=== PATIENT | male | born 1955 | race American Indian/Alaskan Native ===

== ENCOUNTER 2018-01-04 17:52 | Emergency (ER) | payer MEDICAID, OTHER ==
[2018-01-04] MEDS: Sodium Chloride 0.9% 10 ML Syringe FLUSH PRN ×2 (18:03→18:20)
[2018-01-04 18:04] VITALS: BP 169/90
[2018-01-04] MEDS ORDERED: MVI, Adult with Vitamin K 10 ML, Thiamine 100 MG, Folic Acid 1 MG in Lactated Ringers 1... IV ONE ×4 (18:06)
[2018-01-04 18:29] LABS: ANION GAP 18.5; CHLORIDE,CL 101 mmol/L (101-111); SODIUM,NA 139 mmol/L (135-145)
--- NOTE | 2018-01-04 18:46 | EDM.PDOC ---
Scribed by Angelia Wang 01/04/18 [id number] for Bienvenido Gonzalez MD ED HPI GENERAL MEDICAL PROBLEM - General Chief Complaint: Drug or Alcohol Abuse Stated Complaint: ETOH. IN BY [facility] Time Seen by Provider: 01/04/18 17:45 Source of Information: Reports: Patient, EMS, EMS Notes Reviewed, RN, RN Notes Reviewed History Limitations: Reports: No Limitations - History of Present Illness INITIAL COMMENTS - FREE TEXT/NARRATIVE: Patient arrives to ER by [facility]. His called stating she did not think he was breathing. EMS reports that when they arrived on scene the patient was alert and talking. Patient is heavily intoxicated. Patient complained of chest pain and was known by EMS to have coronary artery disease status post CABG. Patient had taken aspirin earlier today. EMS gave nitroglycerin 0.2mg one tablet sublingual, which resolved the patient's chest pain. Patient states that he feels very intoxicated. Denies any pain at this time. Patient is unable to provide any further history. Onset: Today Severity: Moderate Improves with: Reports: None Worsens with: Reports: None Associated Symptoms: Reports: No Other Symptoms - Related Data Allergies Allergy/AdvReac Type Severity Reaction Status Date / Time mathew Allergy Hives Verified 01/04/18 18:06 Home Meds: Home Meds Metoprolol Succinate [Toprol XL] 25 mg PO DAILY 10/17/15 [History] atorvaSTATin Calcium [Atorvastatin Calcium] 40 mg PO DAILY 10/17/15 [History] Aspirin [Halfprin] 81 mg PO DAILY 01/04/18 [History] Ferrous Gluconate 324 mg PO BID 01/04/18 [History] Levothyroxine Sodium [Levo-T] 0.05 mg PO DAILY 01/04/18 [History] Montelukast [Singulair] 10 mg PO DAILY 01/04/18 [History] metFORMIN [Glucophage XR] 500 mg PO DAILY 01/04/18 [History] Past Medical History - Past Health History Medical/Surgical History: Denies Medical/Surgical History HEENT History: Reports: Cataract Cardiovascular History: Reports: CAD Respiratory History: Reports: COPD Musculoskeletal History: Reports: None Psychiatric History: Reports: Addiction (alcohol) - Past Surgical History Cardiovascular Surgical History: Reports: Coronary Artery Bypass Musculoskeletal Surgical History: Reports: Other (See Below) Social & Family History - Family History Family Medical History: Noncontributory - Tobacco Use Smoking Status *Q: Former Smoker Tobacco Use Within Last Twelve Months: Cigarettes - Alcohol Use Alcohol Use History: Yes Days Per Week of Alcohol Use: 7 ("heavy drinker") Alcohol Use Frequency: Daily - Recreational Drug Use Recreational Drug Use: No - Living Situation & Occupation Living situation: Reports: , with Family 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 ED EXAM, GENERAL - Physical Exam Exam: See Below Exam Limited By: Intoxication General Appearance: Alert, WD/WN, No Apparent Distress Eye Exam: Bilateral Eye: Normal Inspection Ears: Hearing Grossly Normal Nose: Normal Inspection, Normal Mucosa, No Blood Throat/Mouth: Normal Lips, Normal Oropharynx, Normal Voice, No Airway Compromise , Other (dry oral membranes) Head: Atraumatic, Normocephalic Neck: Normal Inspection, Supple, Non-Tender, Full Range of Motion Respiratory/Chest: No Respiratory Distress, Lungs Clear, No Accessory Muscle Use , Chest Non-Tender, Decreased Breath Sounds Cardiovascular: Regular Rate, Rhythm, No Edema, Tachycardia GI/Abdominal: Normal Bowel Sounds, Soft, Non-Tender, No Distention. No: Guarding, Rigid, Rebound (Male) Exam: Deferred Rectal (Males) Exam: Deferred Back Exam: Normal Inspection Extremities: Normal Inspection, Normal Range of Motion, Non-Tender, Normal Capillary Refill, No Pedal Edema Neurological: Alert, No Motor/Sensory Deficits, Other (intoxicated) Psychiatric: Normal Mood Skin Exam: Warm, Dry, Intact, Normal Color, No Rash EKG INTERPRETATION EKG Date: 01/04/18 Time: 17:51 Rhythm: Other (sinus tachycardia) Rate (Beats/Min): 131 [place]: Normal P-Wave: Present QRS: Other (inferior Q waves, old (present 10/17/15 EKG).) ST-T: Other (Chronic T wave abnormalities (T wave inversion present 10/17/15). T wave depression V1 and V2.) QT: Normal Course - Vital Signs Last Recorded V/S: Last Vital Signs Temp 36.9 C 01/04/18 18:01 Pulse 118 H 01/04/18 18:01 Resp 18 01/04/18 18:01 BP 169/90 H 01/04/18 18:01 Pulse Ox 97 01/04/18 18:01 - Orders/Labs/Meds Orders: Active Orders 24 hr Category Date Time Status Blood Glucose Check, Bedside [] ONETIME Care 01/04/18 17:53 Active EKG 12 Lead [EKG Documentation Completion] [RC] STAT Care 01/04/18 17:53 Active Peripheral IV Care [RC] . DIRECTED Care 01/04/18 17:53 Active Chest 1V Frontal [CR] Stat Exams 01/04/18 17:53 Taken UA W/MICROSCOPIC [URIN] Stat Lab 01/04/18 17:53 Ordered MVI, Adult with Vitamin K [Infuvite Adult] 10 ml Med 01/04/18 18:06 Active Thiamine [Vitamin B-1] 100 mg Folic Acid 1 mg Lactated Ringers [Ringers, Lactated] 1,000 ml IV .BOLUS Sodium Chloride 0.9% [Saline Flush] Med 01/04/18 17:53 Active 10 ml FLUSH ASDIRECTED PRN Peripheral IV Insertion Adult [OM.PC] Stat Oth 01/04/18 17:53 Ordered Medication Orders Multivitamins/Minerals 10 ml/Thiamine HCl 100 mg/ Folic Acid 1 mg/ Lactated Ringer's 1,011.2 mls @ 999 mls/hr IV .BOLUS ONE Stop: 01/04/18 19:06 Last Admin: 01/04/18 18:20 Dose: 999 mls/hr Sodium Chloride (Saline Flush) 10 ml FLUSH ASDIRECTED PRN PRN Reason: Keep Vein Open Last Admin: 01/04/18 18:20 Dose: 10 ml Admin: 01/04/18 18:03 Dose: 10 ml Labs: Laboratory Tests 01/04/18 01/04/18 01/04/18 Range/Units 18:00 18:00 18:00 WBC 7.7 (5.0-10.0) 10^3/uL RBC 4.65 (4.6-6.2) 10^6/uL Hgb 13.6 L D (14.0-18.0) g/dL Hct 41.1 (40.0-54.0) % MCV 88.4 (80-100) fL MCH 29.2 (27.0-34.0) pg MCHC 33.1 (33.0-35.0) g/dL Plt Count 304 D (150-450) 10^3/uL Neut % (Auto) 62.2 (42.2-75.2) % Lymph % (Auto) 31.6 (20.5-50.1) % [place] % (Auto) 5.4 (2-8) % Eos % (Auto) 0.4 L (1.0-3.0) % Baso % (Auto) 0.4 (0.0-1.0) % PT 10.2 (9.0-12.0) SEC INR 1.0 (0.9-1.2) APTT (22.0-34.0) SEC Sodium 139 (135-145) mmol/L Potassium 3.5 L (3.6-5.0) mmol/L Chloride 101 (101-111) mmol/L Carbon Dioxide 23.0 (21.0-31.0) mmol/L Anion Gap 18.5 BUN 8 (7-18) mg/dL Creatinine 1.0 (0.6-1.3) mg/dL Est Cr Clr Drug Dosing 79.08 mL/min Estimated GFR (MDRD) > 60 BUN/Creatinine Ratio 8.00 Glucose 135 H (74-105) mg/dL POC Glucose (70-105) mg/dl Calcium 7.5 L (8.4-10.2) mg/dl Total Bilirubin 0.6 (0.2-1.0) mg/dL AST 63 H (10-42) IU/L ALT 54 (10-60) IU/L Alkaline Phosphatase 108 (42-121) IU/L Ammonia (11-35) umol/L Troponin I < 0.02 (0.00-0.02) ng/ml B-Natriuretic Peptide 9 (0-100) pg/ml Total Protein 7.1 (6.7-8.2) g/dl Albumin 3.6 (3.2-5.5) g/dl Globulin 3.5 Albumin/Globulin Ratio 1.03 Amylase 19 L (28-100) U/L Lipase 22 (22-51) U/L Ethyl Alcohol 380 mg/dL 01/04/18 01/04/18 01/04/18 Range/Units 18:00 18:00 18:19 WBC (5.0-10.0) 10^3/uL RBC (4.6-6.2) 10^6/uL Hgb (14.0-18.0) g/dL Hct (40.0-54.0) % MCV (80-100) fL MCH (27.0-34.0) pg MCHC (33.0-35.0) g/dL Plt Count (150-450) 10^3/uL Neut % (Auto) (42.2-75.2) % Lymph % (Auto) (20.5-50.1) % [place] % (Auto) (2-8) % Eos % (Auto) (1.0-3.0) % Baso % (Auto) (0.0-1.0) % PT (9.0-12.0) SEC INR (0.9-1.2) APTT 26.1 (22.0-34.0) SEC Sodium (135-145) mmol/L Potassium (3.6-5.0) mmol/L Chloride (101-111) mmol/L Carbon Dioxide (21.0-31.0) mmol/L Anion Gap BUN (7-18) mg/dL Creatinine (0.6-1.3) mg/dL Est Cr Clr Drug Dosing mL/min Estimated GFR (MDRD) BUN/Creatinine Ratio Glucose (74-105) mg/dL POC Glucose 112 H (70-105) mg/dl Calcium (8.4-10.2) mg/dl Total Bilirubin (0.2-1.0) mg/dL AST (10-42) IU/L ALT (10-60) IU/L Alkaline Phosphatase (42-121) IU/L Ammonia 19 (11-35) umol/L Troponin I (0.00-0.02) ng/ml B-Natriuretic Peptide (0-100) pg/ml Total Protein (6.7-8.2) g/dl Albumin (3.2-5.5) g/dl Globulin Albumin/Globulin Ratio Amylase (28-100) U/L Lipase (22-51) U/L Ethyl Alcohol mg/dL Meds: Medications Generic Name Dose Route Start Last Admin Trade Name Freq PRN Reason Stop Dose Admin Multivitamins/Minerals 10 ml/ 1,011.2 mls @ 999 mls/hr 01/04/18 18:06 18:20 Thiamine HCl 100 mg/ Folic IV 01/04/18 19:06 999 mls/hr Acid 1 mg/ Lactated Ringer's .BOLUS ONE Administration Sodium Chloride 10 ml 01/04/18 17:53 01/04/18 18:20 Saline Flush FLUSH 10 ml ASDIRECTED PRN Administration Keep Vein Open - Radiology Interpretation Free Text/Narrative:: CXR: no acute process, see Rad. report. Departure - Departure Time of Disposition: 18:44 Disposition: Home, Self-Care 01 Condition: Fair Clinical Impression: Non-cardiac chest pain Acute alcohol intoxication Qualifiers: Complication of substance-induced condition: uncomplicated Qualified Code(s): F10.929 - Alcohol use, unspecified with intoxication, unspecified - Discharge Information *PRESCRIPTION DRUG MONITORING PROGRAM REVIEWED*: Not Applicable *COPY OF PRESCRIPTION DRUG MONITORING REPORT IN PATIENT BRAIN: Not Applicable Instructions: Alcohol Intoxication, [id number], Nonspecific Chest Pain, Easy- to-Read Forms: ED Department Discharge Additional Instructions: Do not drink any more alcohol tonight. Follow up in clinic this week for recheck. - My Orders Last 24 Hours: My Active Orders 01/04/18 17:53 Blood Glucose Check, Bedside [RC] ONETIME EKG 12 Lead [EKG Documentation Completion] [RC] STAT Peripheral IV Care [RC] . DIRECTED Chest 1V Frontal [CR] Stat UA W/MICROSCOPIC [URIN] Stat Sodium Chloride 0.9% [Saline Flush] 10 ml FLUSH ASDIRECTED PRN Peripheral IV Insertion Adult [OM.PC] Stat 01/04/18 18:06 MVI, Adult with Vitamin K [Infuvite Adult] 10 ml Thiamine [Vitamin B-1] 100 mg Folic Acid 1 mg Lactated Ringers [Ringers, Lactated] 1,000 ml IV .BOLUS - Assessment/Plan Last 24 Hours: My Active Orders 01/04/18 17:53 Blood Glucose Check, Bedside [RC] ONETIME EKG 12 Lead [EKG Documentation Completion] [RC] STAT Peripheral IV Care [RC] . DIRECTED Chest 1V Frontal [CR] Stat UA W/MICROSCOPIC [URIN] Stat Sodium Chloride 0.9% [Saline Flush] 10 ml FLUSH ASDIRECTED PRN Peripheral IV Insertion Adult [OM.PC] Stat 01/04/18 18:06 MVI, Adult with Vitamin K [Infuvite Adult] 10 ml Thiamine [Vitamin B-1] 100 mg Folic Acid 1 mg Lactated Ringers [Ringers, Lactated] 1,000 ml IV .BOLUS I have read and agree with the documentation that has been completed regarding this visit. By signing this record, I attest that the documentation was completed in my physical presence and is an accurate record of the encounter.
== END 2018-01-04 18:53 | disposition home or self-care (01) ==
LOC: DL.ED 17:52
DX: F10.129 Alcohol abuse with intoxication, unspecified (principal); R07.89 Other chest pain; I25.10 Atherosclerotic heart disease of native coronary artery without angina pectoris; Y90.8 Blood alcohol level of 240 mg/100 ml or more; Z79.82 Long term (current) use of aspirin; Z79.84 Long term (current) use of oral hypoglycemic drugs; Z79.899 Other long term (current) drug therapy; Z87.891 Personal history of nicotine dependence; Z95.1 Presence of aortocoronary bypass graft; Z91.018 Allergy to other foods
CPT/HCPCS: 36415; 71045; 80053; 82140; 82150; 82962; 83690; 83880; 84484; 85025; 85610; 85730; 93005; 96365; 99285; G0480; J3411; J7050; J7120; J3490

== ENCOUNTER 2019-11-20 17:35 | Observation (INO) | payer MEDICAID, OTHER ==
[2019-11-20] MEDS ORDERED: LORazepam 2 MG/ML SDV IVPUSH ONE (17:48)
[2019-11-20] MEDS ORDERED: MVI, Adult with Vitamin K 10 ML, Folic Acid 1 MG, Thiamine 100 MG in Lactated Ringers 1... IV ONE ×4 (17:48)
[2019-11-20] MEDS ORDERED: Folic Acid 1 MG Tab PO ONE (17:49)
[2019-11-20 17:57] LABS: ANION GAP 20.5 mEq/L (7-13); CHLORIDE,CL 97 mmol/L (98-107); SODIUM,NA 136 mmol/L (136-145)
--- NOTE | 2019-11-20 18:34 | CR ---
PROCEDURE INFORMATION: Exam: XR Chest, 1 View Exam date and time: 11/20/2019 6:24 PM Age: 64 years old Clinical indication: Other: Chest pain TECHNIQUE: Imaging protocol: XR of the chest Views: 1 view. COMPARISON: CR Chest 1V Frontal 10/11/2018 5:01 PM FINDINGS: Lungs: There is hyperinflation bilaterally which may represent COPD. There is no evidence of acute lung consolidation. No edema. There are some areas of streaky linear opacification which may represent scarring. This is stable since 10/11/2018. Pleural space: No pleural effusion. Heart/Mediastinum: Moderate to severe cardiomegaly. Previous open-heart surgery. Bones/joints: Degenerative thoracic spine disease . Old healed right clavicle fracture. IMPRESSION: 1. Hyperinflation suggesting COPD. Minor areas of linear lung scarring. 2. No acute infiltrates or edema. 3. Cardiomegaly. Previous open-heart surgery.
--- NOTE | 2019-11-20 18:43 | EDM.PDOC ---
ED HPI GENERAL MEDICAL PROBLEM - General Chief Complaint: Chest Pain Stated Complaint: AMBULANCE Time Seen by Provider: 11/20/19 17:50 Source of Information: Reports: Patient, RN History Limitations: Reports: Intoxication - History of Present Illness INITIAL COMMENTS - FREE TEXT/NARRATIVE: 64 year male brought in by ambulance for complaints of chest pain and alcohol intoxication x one hour. Patient reports he had a 16 oz of beer and was going to the garage to get his granddaughter's bike when he felt chest pressure, became diaphoretic and dizzy. He reports his granddaughter call 911. Enroute, he was given Nitro x 2 and Aspirin 325 mg which help resolved his pain. BP was in the 190's but down 150 in the ER. Patient reports a history of VT four years ago.He denies SOB, CP, palpitations, and leg swelling. Upper Chest Pain Score (Numeric/FACES): 8 - Related Data Allergies Allergy/AdvReac Type Severity Reaction Status Date / Time mathew Allergy Hives Verified 11/20/19 17:35 Home Meds: Home Meds Metoprolol Succinate [Toprol XL] 25 mg PO DAILY 10/17/15 [History] atorvaSTATin Calcium [Atorvastatin Calcium] 40 mg PO DAILY 10/17/15 [History] Aspirin [Halfprin] 81 mg PO DAILY 01/04/18 [History] Ferrous Gluconate 324 mg PO BID 01/04/18 [History] Levothyroxine Sodium [Levo-T] 0.05 mg PO DAILY 01/04/18 [History] Montelukast [Singulair] 10 mg PO DAILY 01/04/18 [History] metFORMIN [Glucophage XR] 250 mg PO DAILY 01/04/18 [History] Ascorbic Acid [Vitamin C] 500 mg PO BID 10/11/18 [History] Past Medical History - Past Health History Medical/Surgical History: Denies Medical/Surgical History HEENT History: Reports: Cataract Cardiovascular History: Reports: Bypass, CAD Respiratory History: Reports: COPD Other Respiratory History: hx dyspnea Gastrointestinal History: Reports: None Genitourinary History: Reports: None Musculoskeletal History: Reports: None Neurological History: Reports: None Psychiatric History: Reports: Addiction Other Psychiatric History: alcohol abuse Endocrine/Metabolic History: Reports: None, Hypothyroidism Hematologic History: Reports: None Immunologic History: Reports: None Oncologic (Cancer) History: Reports: None Dermatologic History: Reports: None - Infectious Disease History Infectious Disease History: Reports: None - Past Surgical History Head Surgeries/Procedures: Reports: None Cardiovascular Surgical History: Reports: Coronary Artery Bypass Social & Family History - Family History Family Medical History: Noncontributory - Tobacco Use Smoking Status *Q: Former Smoker Used Tobacco, but Quit: Yes Month/Year Tobacco Last Used: 04/06/2014 - Caffeine Use Caffeine Use: Reports: Coffee - Alcohol Use Days Per Week of Alcohol Use: 3 Number of Drinks Per Day: 3 Total Drinks Per Week: 9 - Recreational Drug Use Recreational Drug Use: No - Living Situation & Occupation Living situation: Reports: , with Family 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 ED EXAM, GENERAL - Physical Exam Exam: See Below Exam Limited By: Intoxication General Appearance: Alert Eye Exam: Bilateral Eye: PERRL Ears: Normal External Exam, Normal Canal, Hearing Grossly Normal, Normal TMs Nose: Normal Inspection, Normal Mucosa, No Blood Throat/Mouth: Normal Inspection, Normal Lips, Normal Oropharynx, No Airway Compromise. No: Normal Teeth Head: Atraumatic, Normocephalic Neck: Normal Inspection, Supple, Non-Tender, Full Range of Motion Respiratory/Chest: No Respiratory Distress, Lungs Clear, Normal Breath Sounds, No Accessory Muscle Use, Chest Non-Tender Cardiovascular: No Edema, No Gallop, No JVD, No Murmur, No Rub, Tachycardia GI/Abdominal: Normal Bowel Sounds, Soft, Non-Tender (Male) Exam: Deferred Rectal (Males) Exam: Deferred Back Exam: Normal Inspection, Full Range of Motion Neurological: Alert, Oriented Psychiatric: Normal Affect Skin Exam: Warm EKG INTERPRETATION Rhythm: Other (ST) Rate (Beats/Min): 147 Course - Vital Signs Last Recorded V/S: Last Vital Signs Temp 99.6 F 11/20/19 17:32 Pulse 144 H 11/20/19 17:32 Resp 23 H 11/20/19 17:32 BP 149/80 H 11/20/19 17:32 Pulse Ox 95 11/20/19 17:32 - Orders/Labs/Meds Orders: Active Orders 24 hr Category Date Time Status EKG 12 Lead [EKG Documentation Completion] [RC] STAT Care 11/20/19 17:39 Active DRUG SCREEN, URINE [URCHEM] Stat Lab 11/20/19 17:47 Ordered MVI, Adult with Vitamin K [Infuvite Adult] 10 ml Med 11/20/19 17:48 Active Folic Acid 1 mg Thiamine [Vitamin B-1] 100 mg Lactated Ringers [Ringers, Lactated] 1,000 ml IV ONETIME Medication Orders Multivitamins/Minerals 10 ml/Folic Acid 1 mg/ Thiamine HCl 100 mg/ Lactated Ringer's 1,011.2 mls @ 999 mls/hr IV ONETIME ONE Stop: 11/20/19 18:48 Last Admin: 11/20/19 17:59 Dose: 999 mls/hr Documented by: NIC Labs: Laboratory Tests 11/20/19 11/20/19 11/20/19 Range/Units 17:31 17:31 17:31 WBC 8.9 (5.0-10.0) 10^3/uL RBC 4.82 (4.6-6.2) 10^6/uL Hgb 12.3 L (14.0-18.0) g/dL Hct 38.2 L (40.0-54.0) % MCV 79.3 L D (80-100) fL MCH 25.5 L (27.0-34.0) pg MCHC 32.2 L (33.0-35.0) g/dL Plt Count 394 (150-450) 10^3/uL Neut % (Auto) 54.8 (42.2-75.2) % Lymph % (Auto) 36.4 (20.5-50.1) % [place] % (Auto) 6.6 (2-8) % Eos % (Auto) 1.5 (1.0-3.0) % Baso % (Auto) 0.7 (0.0-1.0) % Sodium 136 (136-145) mmol/L Potassium 3.5 (3.5-5.1) mmol/L Chloride 97 L (98-107) mmol/L Carbon Dioxide 22 (21-32) mmol/L Anion Gap 20.5 H (7-13) mEq/L BUN 16 (7-18) mg/dL Creatinine 1.49 H (0.70-1.30) mg/dL Est Cr Clr Drug Dosing TNP Estimated GFR (MDRD) 47 BUN/Creatinine Ratio 10.7 (No establ ref range) Glucose 121 H (74-99) mg/dL Calcium 8.4 L (8.5-10.1) mg/dL Total Bilirubin 0.5 (0.2-1.0) mg/dL AST 61 H (15-37) U/L ALT 65 H (16-63) U/L Alkaline Phosphatase 119 H (46-116) U/L Troponin I < 0.017 (0.000-0.056) ng/mL Total Protein 8.6 H (6.4-8.2) g/dL Albumin 4.2 (3.4-5.0) g/dL Globulin 4.4 Albumin/Globulin Ratio 1.0 Ethyl Alcohol 285 (0) mg/dL Meds: Medications Generic Name Dose Route Start Last Admin Trade Name Freq PRN Reason Stop Dose Admin Multivitamins/Minerals 10 ml/ 1,011.2 mls @ 999 mls/hr 11/20/19 17:48 11/20/19 17:59 Folic Acid 1 mg/ Thiamine HCl IV 11/20/19 18:48 999 mls/hr 100 mg/ Lactated Ringer's ONETIME ONE Administration Discontinued Medications Generic Name Dose Route Start Last Admin Trade Name Freq PRN Reason Stop Dose Admin Folic Acid 1 mg 11/20/19 17:49 11/20/19 17:59 Folic Acid PO 11/20/19 17:50 1 mg ONETIME ONE Administration Lorazepam 1 mg 11/20/19 17:48 11/20/19 17:58 Ativan IVPUSH 11/20/19 17:49 1 mg ONETIME ONE Administration - Re-Assessments/Exams Free Text/Narrative Re-Assessment/Exam: Patient presents to the ER with complaints of CP which resolved with Nitro x 2 and aspirin 325 mg. He was given a banana bag with 1 mg of Ativan. Labs, EKG and Chest ray reviewed with patient. Discussed case with who accepted patient for observation. 11/20/19 19:05 Departure - Departure Time of Disposition: 19:00 Disposition: Refer to Observation Condition: Fair Clinical Impression: Chest pain, rule out acute myocardial infarction Alcohol intoxication Qualifiers: Complication of substance-induced condition: uncomplicated Qualified Code(s): F10.920 - Alcohol use, unspecified with intoxication, uncomplicated Sepsis Event Note (ED) - Evaluation Sepsis Screening Result: No Definite Risk - Focused Exam Vital Signs: Vital Signs Temp Pulse Resp BP Pulse Ox 11/20/19 17:32 99.6 F 144 H 23 H 149/80 H 95 - My Orders Last 24 Hours: My Active Orders 11/20/19 17:39 EKG 12 Lead [EKG Documentation Completion] [RC] STAT 11/20/19 17:47 DRUG SCREEN, URINE [URCHEM] Stat 11/20/19 17:48 MVI, Adult with Vitamin K [Infuvite Adult] 10 ml Folic Acid 1 mg Thiamine [Vitamin B-1] 100 mg Lactated Ringers [Ringers, Lactated] 1,000 ml IV ONETIME - Assessment/Plan Last 24 Hours: My Active Orders 11/20/19 17:39 EKG 12 Lead [EKG Documentation Completion] [RC] STAT 11/20/19 17:47 DRUG SCREEN, URINE [URCHEM] Stat 11/20/19 17:48 MVI, Adult with Vitamin K [Infuvite Adult] 10 ml Folic Acid 1 mg Thiamine [Vitamin B-1] 100 mg Lactated Ringers [Ringers, Lactated] 1,000 ml IV ONETIME
--- NOTE | 2019-11-20 19:42 | PCM.HP ---
H&P History of Present Illness - General Date of Service: 11/20/19 Admit Problem/Dx: Admission Diagnosis/Problem Admission Diagnosis/Problem Alcohol intoxication/chest Pain Source of Information: Patient, EMS History Limitations: Reports: No Limitations - History of Present Illness Initial Comments - Free Text/Narative: This is a 64 Y/O M with past [employer] history of Hypertension, AAD, Bypass, COPD who was brought in by ambulance for complaints of chest pain and alcohol i ntoxication x one hour. Patient reports he had a 16 oz of beer and was going to the garage to get his granddaughter's bike when he felt chest pressure, became diaphoretic and dizzy. He reports his granddaughter call 911. Enroute, he was given Nitro x 2 and Aspirin 325 mg which help resolved his pain. BP was in the 190's but down 150 in the ER. Patient reports a history of RI four years ago.He denies SOB, CP, palpitations, nausea or Vomiting. His first Trop in ER was acceptable it was <0.017, he will be admitted for alcohol withdrawal and Rule out ACS. Onset of Symptoms: Reports: Sudden Location: Reports: Chest Quality: Reports: Sharp Associated Symptoms: Reports: Chest Pain Upper Chest Pain Score (Numeric/FACES): 8 - Related Data Allergies/Adverse Reactions: Allergies Allergy/AdvReac Type Severity Reaction Status Date / Time mathew Allergy Hives Verified 11/20/19 17:35 Home Medications: Home Meds Metoprolol Succinate [Toprol XL] 25 mg PO DAILY 10/17/15 [History] atorvaSTATin Calcium [Atorvastatin Calcium] 40 mg PO DAILY 10/17/15 [History] Aspirin [Halfprin] 81 mg PO DAILY 01/04/18 [History] Ferrous Gluconate 324 mg PO BID 01/04/18 [History] Levothyroxine Sodium [Levo-T] 0.05 mg PO DAILY 01/04/18 [History] Montelukast [Singulair] 10 mg PO DAILY 01/04/18 [History] metFORMIN [Glucophage XR] 250 mg PO DAILY 01/04/18 [History] Ascorbic Acid [Vitamin C] 500 mg PO BID 10/11/18 [History] Past Medical History - Past Health History Medical/Surgical History: Denies Medical/Surgical History HEENT History: Reports: Cataract Cardiovascular History: Reports: Bypass, CAD Respiratory History: Reports: COPD Other Respiratory History: hx dyspnea Gastrointestinal History: Reports: None Genitourinary History: Reports: None Musculoskeletal History: Reports: None Neurological History: Reports: None Psychiatric History: Reports: Addiction Other Psychiatric History: alcohol abuse Endocrine/Metabolic History: Reports: None, Hypothyroidism Hematologic History: Reports: None Immunologic History: Reports: None Oncologic (Cancer) History: Reports: None Dermatologic History: Reports: None - Infectious Disease History Infectious Disease History: Reports: None - Past Surgical History Head Surgeries/Procedures: Reports: None Cardiovascular Surgical History: Reports: Coronary Artery Bypass Social & Family History - Family History Family Medical History: Noncontributory - Tobacco Use Smoking Status *Q: Former Smoker Used Tobacco, but Quit: Yes Month/Year Tobacco Last Used: 04/06/2014 - Caffeine Use Caffeine Use: Reports: Coffee - Alcohol Use Days Per Week of Alcohol Use: 3 Number of Drinks Per Day: 3 Total Drinks Per Week: 9 - Recreational Drug Use Recreational Drug Use: No - Living Situation & Occupation Living situation: Reports: , with Family 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) H&P Review of Systems - Review of Systems: Review Of Systems: See Below General: Denies: Fever, Chills, Weakness HEENT: Denies: Headaches, Sinus Congestion, Visual Changes Pulmonary: Denies: Shortness of Breath, Wheezing, Cough, Sputum Cardiovascular: Reports: Chest Pain, Blood Pressure Problem Gastrointestinal: Denies: Abdominal Pain, Diarrhea, Nausea, Vomiting Genitourinary: Denies: Dysuria, Burning, Flank Pain Musculoskeletal: Denies: Neck Pain, Back Pain, Leg Pain, Muscle Stiffness Skin: Denies: Cyanosis, Jaundice, Bruising, Pruritis, Rash Psychiatric: Denies: Confusion, Anxiety Neurological: Denies: Confusion, Tingling, Tremors Hematologic/Lymphatic: Reports: No Symptoms Immunologic: Reports: No Symptoms Exam - Exam Exam: See Below - Vital Signs Vital Signs: Last Vital Signs Temp 37.6 C 11/20/19 17:32 Pulse 144 H 11/20/19 17:32 Resp 23 H 11/20/19 17:32 BP 149/80 H 11/20/19 17:32 Pulse Ox 95 11/20/19 17:32 Weight: 82.282 kg - Exam Quality Assessment: DVT Prophylaxis. No: Supplemental Oxygen, Urinary Catheter General: Alert, Oriented, Cooperative HEENT: Conjunctiva Clear, EOMI, Hearing Intact Neck: Supple. No: Lymphadenopathy, JVD, Thyromegaly Lungs: Clear to Auscultation, Normal Respiratory Effort. No: Crackles, Wheezing Cardiovascular: Regular Rate, Regular Rhythm, Systolic Murmur GI/Abdominal Exam: Normal Bowel Sounds, Soft, Non-Tender. No: Guarding, Rebound (Male) Exam: Deferred Rectal (Males) Exam: Deferred Back Exam: Normal Inspection, Full Range of Motion Extremities: Normal Inspection, No Pedal Edema Skin: Warm, Intact Neurological: Cranial Nerves Intact, Reflexes Equal Bilateral Neuro Extensive - Mental Status: Alert, Oriented x3, Normal Mood/Affect, Normal Cognition Neuro Extensive - Motor, Sensory, Reflexes: CN II-XII Intact, Normal Reflexes Psychiatric: Alert, Normal Affect, Normal Mood - Patient Data Lab Results Last 24 hrs: Laboratory Results - last 24 hr 11/20/19 11/20/19 11/20/19 Range/Units 17:31 17:31 17:31 WBC 8.9 (5.0-10.0) 10^3/uL RBC 4.82 (4.6-6.2) 10^6/uL Hgb 12.3 L (14.0-18.0) g/dL Hct 38.2 L (40.0-54.0) % MCV 79.3 L D (80-100) fL MCH 25.5 L (27.0-34.0) pg MCHC 32.2 L (33.0-35.0) g/dL Plt Count 394 (150-450) 10^3/uL Neut % (Auto) 54.8 (42.2-75.2) % Lymph % (Auto) 36.4 (20.5-50.1) % Stephens % (Auto) 6.6 (2-8) % Eos % (Auto) 1.5 (1.0-3.0) % Baso % (Auto) 0.7 (0.0-1.0) % Sodium 136 (136-145) mmol/L Potassium 3.5 (3.5-5.1) mmol/L Chloride 97 L (98-107) mmol/L Carbon Dioxide 22 (21-32) mmol/L Anion Gap 20.5 H (7-13) mEq/L BUN 16 (7-18) mg/dL Creatinine 1.49 H (0.70-1.30) mg/dL Est Cr Clr Drug Dosing TNP Estimated GFR (MDRD) 47 BUN/Creatinine Ratio 10.7 (No establ ref range) Glucose 121 H (74-99) mg/dL Calcium 8.4 L (8.5-10.1) mg/dL Total Bilirubin 0.5 (0.2-1.0) mg/dL AST 61 H (15-37) U/L ALT 65 H (16-63) U/L Alkaline Phosphatase 119 H (46-116) U/L Troponin I < 0.017 (0.000-0.056) ng/mL Total Protein 8.6 H (6.4-8.2) g/dL Albumin 4.2 (3.4-5.0) g/dL Globulin 4.4 Albumin/Globulin Ratio 1.0 Ethyl Alcohol 285 (0) mg/dL Result Diagrams: 11/20/19 17:31 11/20/19 17:31 - Problem List (1) HTN (hypertension) SNOMED Code(s): 22443375 ICD Code: I10 - ESSENTIAL (PRIMARY) HYPERTENSION Status: Acute Current Visit: Yes (2) Alcohol intoxication SNOMED Code(s): 45704147 ICD Code: F10.929 - ALCOHOL USE, UNSPECIFIED WITH INTOXICATION, UNSPECIFIED Status: Acute Current Visit: Yes Qualifiers: Complication of substance-induced condition: uncomplicated Qualified Code(s): F10.920 - Alcohol use, unspecified with intoxication, uncomplicated (3) Chest pain, rule out acute myocardial infarction SNOMED Code(s): 80672628 ICD Code: R07.9 - CHEST PAIN, UNSPECIFIED Status: Acute Current Visit: Yes Problem List Initiated/Reviewed/Updated: Yes Orders Last 24hrs: Active Orders 24 hr Category Date Time Status Admission Diagnosis [ADT] Routine ADT 11/20/19 18:51 Ordered Admission Status [Patient Status] [ADT] Routine ADT 11/20/19 18:51 Active EKG 12 Lead [EKG Documentation Completion] [RC] STAT Care 11/20/19 17:39 A ctive DRUG SCREEN, URINE [URCHEM] Stat Lab 11/20/19 17:47 Ordered Assessment/Plan Comment:: This is a 64 Y/O M with past [employer] history of Hypertension, AAD, Bypass, COPD who was brought in by ambulance for complaints of chest pain and alcohol intoxication x one hour. Patient reports he had a 16 oz of beer and was going to the garage to get his granddaughter's bike when he felt chest pressure, became diaphoretic and dizzy. He reports his granddaughter call 911. Enroute, he was given Nitro x 2 and Aspirin 325 mg which help resolved his pain. BP was in the 190's but down 150 in the ER. Patient reports a history of RI four years ago.He denies SOB, CP, palpitations, nausea or Vomiting. His first Trop in ER was acceptable it was <0.017, he will be admitted for alcohol withdrawal and Rule out ACS. Impression and Plan: 1. Acute Alcohol intoxication: Pt had large drinl and his blood alcohol level was 285 -will place him on alcohol withdrawal protocol -Will start NS at 75 ml/hr -fall precaution 2. Chest pain: pt had chest pain which improved with NTG and Aspirin -Will check Troponin I X 3 ( q 6 hrs) -First Troponin is normal -This is likely from ingestion of alcohol and likely musculoskeletal also uncontrolled hypertension -Will give NTG PRN and if there increase in cardiac markers then will start him on heparin 3. Hypertension : BP was elevated and will start Metoprolol at 25 mg daily 4. Diabetes II: He is on Metformin and will continue the home Medication 5. Dyslipidemia: Continue statin 6. DVT prophylaxis: continue enoxaparin Code Status: discussed with pt and he wants to be Full Code
[2019-11-20] MEDS ORDERED: Docusate Sodium 100 MG Cap PO PRN (20:36)
[2019-11-20] MEDS ORDERED: Acetaminophen 325 MG Tab PO PRN (20:36)
[2019-11-20] MEDS ORDERED: Metoprolol Succinate 25 MG Tab.ER PO SCH (20:48)
[2019-11-20] MEDS ORDERED: LORazepam 2 MG/ML SDV IVPUSH PRN ×2 (20:56→20:59)
[2019-11-20] MEDS ORDERED: LORazepam 1 MG Tab PO PRN (21:00)
[2019-11-20] MEDS ORDERED: Sodium Chloride 0.9% 1,000 ML IV SCH (21:30)
[2019-11-21 05:04] LABS: ANION GAP 15.5 mEq/L (7-13); CHLORIDE,CL 103 mmol/L (98-107); SODIUM,NA 141 mmol/L (136-145)
[2019-11-21 08:25] VITALS: BP 152/71; PULSE 96
[2019-11-21] MEDS: Insulin Lispro 100 Units/ML 3 ML Vial SUBCUT SCH ×2 (08:41→12:26)
[2019-11-21] MEDS ORDERED: Ascorbic Acid 500 MG Tab PO SCH (09:00)
[2019-11-21] MEDS ORDERED: Levothyroxine 50 MCG Tab PO SCH (09:00)
[2019-11-21] MEDS ORDERED: Montelukast 10 MG Tab PO SCH (09:00)
[2019-11-21] MEDS ORDERED: metFORMIN 500 MG Tab PO SCH (09:00)
[2019-11-21] MEDS ORDERED: Aspirin 81 MG Tab.EC PO SCH (09:00)
[2019-11-21] MEDS ORDERED: Enoxaparin 40 MG/0.4 ML Syringe SUBCUT SCH (09:00)
[2019-11-21] MEDS ORDERED: atorvaSTATin 20 MG Tab PO SCH (09:00)
--- NOTE | 2019-11-21 10:09 | PN ---
DATE: 11/21/2019 SUBJECTIVE: The patient is a 64-year-old male who has history of hypertension and coronary artery bypass graft, chronic obstructive pulmonary disease, who was admitted because of chest pain and alcohol intoxication. Three sets of troponin came back negative, and this morning, he is feeling good and he denies any more chest pain or shortness of breath. The patient denies any signs of withdrawal. He mentioned that he is ready to go home. LAB WORKUP THIS MORNING: Chem-6 unremarkable and glucose is 114. OBJECTIVE: Vital Signs: Blood pressure is 152/71, pulse of 96, respirations of 20, temperature of 98.3, saturation is 97%. Heart: Regular rate and rhythm. Normal S1 and S2. No gallops. No rubs. Lungs: Equal bilaterally. No crackles. No wheezing. Abdomen: Soft, nontender. Bowel sounds positive. Extremities: Negative for any pedal edema. No calf tenderness. PLAN: We will discharge the patient home today. I am going to increase his Toprol-XL to 50 mg a day. We will resume his home medication and follow up with primary care provider in 1 week. [facility] /[id number]
[2019-11-21] MEDS ORDERED: MVI, Adult with Vitamin K 10 ML, Thiamine 100 MG in Lactated Ringers 1,000 ML IV ONE ×3 (11:49)
[2019-11-21] MEDS ORDERED: Ferrous Sulfate 325 MG Tab PO SCH (12:00)
--- NOTE | 2019-11-21 17:50 | DISCH ---
FINAL DIAGNOSES: 1. Chest pain, myocardial infarction ruled out. 2. Alcohol intoxication. 3. Hypertension. 4. Type 2 diabetes mellitus. 5. Dyslipidemia. 6. Coronary artery disease. HOSPITAL COURSE: The patient was admitted to General Medicine floor. He was not on rule out NH protocol and also on alcohol withdrawal protocol. Three sets of troponin came back negative. He was started on metoprolol 25 mg daily for his elevated blood pressure, but blood pressure was still slightly elevated and this was increased to 50 mg a day. The rest of the hospital course was unremarkable. The patient was feeling much better and the patient was subsequently discharged and the patient is to follow up with his primary care provider in 1 week for a recheck and he will be resumed on his home medication. CONDITION ON DISCHARGE: Improved. [facility] /[id number]
[2019-11-22] MEDS ORDERED: Metoprolol Succinate 50 MG Tab.ER PO SCH (09:00)
== END 2019-11-21 11:50 | disposition home or self-care (01) ==
LOC: DL.ED 17:35 → DL.MS 18:51 → UNDOADMOB 19:06
PROVIDERS: ADMIT Internal Medicine Nephrology; ATTEND Internal Medicine
DX: R07.89 Other chest pain (principal); F10.120 Alcohol abuse with intoxication, uncomplicated; J44.9 Chronic obstructive pulmonary disease, unspecified; I25.10 Atherosclerotic heart disease of native coronary artery without angina pectoris; E03.9 Hypothyroidism, unspecified; I25.2 Old myocardial infarction; Z79.890 Hormone replacement therapy; Z87.891 Personal history of nicotine dependence; Z95.1 Presence of aortocoronary bypass graft; Z79.899 Other long term (current) drug therapy; Z79.82 Long term (current) use of aspirin; Y90.0 Blood alcohol level of less than 20 mg/100 ml
CPT/HCPCS: 36415; 71045; 80048; 80053; 80305; 80307; 82962; 84484; 85025; 93005; 96361; 96365; 96372; 96375; 99285; A9270; G0378; J1650; J2060; J3411; J7030; J7120; J3490

== ENCOUNTER 2024-07-09 20:09 | Emergency (ER) | payer MEDICARE, OTHER ==
[2024-07-09] MEDS ORDERED: Sodium Chloride 0.9% 10 ML Syringe FLUSH PRN (20:22)
[2024-07-09] MEDS: Sodium Chloride 0.9% 1,000 ML IV ONE ×3 (20:32→23:48)
[2024-07-09 20:44] LABS: HEMATOCRIT 37.9 % (40.0-54.0); HEMOGLOBIN 12.4 g/dL (14.0-18.0); MEAN CORPUSCULAR HEMOGLOBIN 26.1 pg (27.0-34.0); MEAN CORPUSCULAR HGB CONC 32.7 g/dL (33.0-35.0); MEAN CORPUSCULAR VOLUME 79.6 fL (80-100); PLATELET COUNT,PLT 245 10^3/uL (150-450); RED BLOOD CELL COUNT 4.76 10^6/uL (4.6-6.2); WHITE BLOOD CELL COUNT,WBC 37.9 10^3/uL (5.0-10.0)
[2024-07-09 20:50] LABS: BASOPHILS PERCENT AUTO 0.1 % (0.0-1.0); LYMPHOCYTES PERCENT AUTO 3.3 % (20.5-50.1); MONOCYTES PERCENT AUTO 4.2 % (2-8); NEUTROPHILS PERCENT AUTO 92.4 % (42.2-75.2)
[2024-07-09 21:07] LABS: ALANINE AMINOTRANSFERASE,ALT 38 U/L (16-63); ALBUMIN 2.6 g/dL (3.4-5.0); ALKALINE PHOSPHATASE 156 U/L (46-116); ASPARTATE AMNIOTRANSFERASE,AST 29 U/L (15-37); BILIRUBIN TOTAL 0.5 mg/dL (0.2-1.0); BLOOD UREA NITROGEN,BUN 41 mg/dL (7-18); BUN/CREATININE RATIO 25.3 (No establ ref range); CALCIUM 9.7 mg/dL (8.5-10.1); CARBON DIOXIDE,CO2 25 mmol/L (21-32); CHLORIDE,CL 86 mmol/L (98-107); CREATININE 1.62 mg/dL (0.70-1.30); GLUCOSE RANDOM 373 mg/dL (70-99); LIPASE 13 U/L (16-77); PROTEIN TOTAL,TP 8.1 g/dL (6.4-8.2); SODIUM,NA 126 mmol/L (136-145)
[2024-07-09 21:11] LABS: A/G RATIO 0.47; ESTIMATED GFR 46 mL/min (>=60); ETHANOL BLOOD MEDICAL < 3 mg/dL (0)
[2024-07-09 21:13] LABS: LACTIC ACID 3.6 mmol/L (0.4-2.0)
[2024-07-09] MEDS: Iopamidol 612 MG/ML 100 ML Bottle IVPUSH ONE (21:15)
[2024-07-09 21:19] LABS: PROTHROMBIN TIME 10.2 SEC (9.0-12.0); PTT,PARTIAL THROMBOPLSTIN TIME 28.1 SEC (22.0-34.0)
[2024-07-09] MEDS ORDERED: Iopamidol 755 Mg/ML 100 ML Bottle IVPUSH ONE (21:28)
[2024-07-09 21:37] LABS: C-REACTIVE PROTEIN > 25.00 ng/dL (<=0.50)
[2024-07-09] MEDS: VANCOmycin 1.5 GM in Sodium Chloride 0.9% 250 ML IV ONE (22:16)
[2024-07-09 22:32] LABS: BAND PERCENT MAN 2 %; LYMPHOCYTES PERCENT MAN 3 % (20-50); MONOCYTES PERCENT MAN 5 % (2-8); SEG NEUTROPHILS PERCENT MAN 90 % (42-75)
[2024-07-09] MEDS: Cefepime 2 GM Vial IVPUSH ONE (23:09)
[2024-07-09] MEDS: Diphtheria,Pertussis(Acell),Tetanus Vaccine 0.5 ML Syringe IM ONE (23:21)
[2024-07-09] MEDS: Acetaminophen 500 MG Tab PO ONE (23:51)
[2024-07-10 00:35] VITALS: BP 164/86; PULSE 125
== END 2024-07-09 23:52 ==
LOC: DL.ED 20:09
DX: A41.9 Sepsis, unspecified organism (principal); L03.114 Cellulitis of left upper limb; Z23 Encounter for immunization; I25.10 Atherosclerotic heart disease of native coronary artery without angina pectoris; E03.9 Hypothyroidism, unspecified; Z79.890 Hormone replacement therapy; Z79.899 Other long term (current) drug therapy; Z79.84 Long term (current) use of oral hypoglycemic drugs; Z79.82 Long term (current) use of aspirin; Z91.018 Allergy to other foods
CPT/HCPCS: 36415; 71101-RT; 71275; 73090-LT; 73201; 80053; 80307; 83605; 83690; 84484; 85025; 85379; 85610; 85730; 86140; 87040; 90471; 90715; 93005; 93010; 96361; 96365; 96375; 99285; 99285-25; A9270-GY; J0692; J7030; J7050; Q9967